=== PATIENT | female | born 2000 | race Caucasian/White ===

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

== ENCOUNTER 2022-06-01 22:45 | Emergency (ER) | payer OTHER, MEDICAID ==
[~2022-06-01] VITALS: Ht 160 cm; Wt 79.0 kg
[~2022-06-01 22:45] MED LIST changes: +AMOXICILLIN500 MG PO; +TYLENOL # 31 TA1 PO; +VOLTAREN75 MG PO
[2022-06-01 23:48] VITALS: BP 138/84
[2022-06-01] MEDS ORDERED: TRAZODONE50 MG PO (23:55)
[2022-06-01] MEDS ORDERED: ZOLOFT25 MG PO (23:56)
[2022-06-02] VITALS: BP 124/76
[2022-06-02 00:15] VITALS: BP 118/100
[2022-06-03] MEDS ORDERED: LORTAB 1010 MG PO ×2 (21:36→21:47)
== END 2022-06-02 00:31 | disposition home or self-care (01) | DRG 159 ==
LOC: ED 22:45
DX: K04.7 Periapical abscess without sinus (principal)

== ENCOUNTER 2022-06-03 20:08 | Emergency (ER) | payer OTHER, MEDICAID ==
[~2022-06-03] VITALS: Ht 162.6 cm; Wt 79.5 kg
[~2022-06-03 20:08] MED LIST changes: +TRAZODONE50 MG PO; +ZOLOFT25 MG PO
[2022-06-03 21:06] VITALS: BP 128/85
[2022-06-03 21:15] VITALS: BP 121/73
[2022-06-03 21:30] VITALS: BP 130/86
[2022-06-03] MEDS ORDERED: LORTAB 1010 MG PO ×2 (21:36→21:47)
[2022-06-03 21:45] VITALS: BP 130/75
== END 2022-06-03 21:51 | disposition home or self-care (01) | DRG 159 ==
LOC: ED 20:08
DX: K04.7 Periapical abscess without sinus (principal)

== ENCOUNTER 2022-09-11 22:24 | Emergency (ER) | payer OTHER, MEDICAID ==
[~2022-09-11] VITALS: Ht 162.6 cm; Wt 70.0 kg
[~2022-09-11 22:24] MED LIST changes: +LORTAB 1010 MG PO
[2022-09-11 22:29] VITALS: BP 125/79
[2022-09-11 22:30] VITALS: BP 114/83
[2022-09-11 22:46] VITALS: BP 115/60
[2022-09-11] MEDS ORDERED: CLARITIN10 M1 PO (23:07)
[2022-09-11] MEDS ORDERED: AMOXICILLIN500 MG PO (23:07)
[2022-09-11 23:09] VITALS: BP 108/39
[2022-09-11 23:29] VITALS: BP 108/39
== END 2022-09-11 23:34 | disposition home or self-care (01) | DRG 153 ==
LOC: ED 22:24
DX: J02.9 Acute pharyngitis, unspecified (principal); F41.9 Anxiety disorder, unspecified; Z20.822 Contact with and (suspected) exposure to COVID-19

== ENCOUNTER 2022-11-22 10:08 | Emergency (ER) | payer OTHER, MEDICAID ==
[~2022-11-22] VITALS: Ht 162.6 cm; Wt 81.0 kg
[~2022-11-22 10:08] MED LIST changes: +CLARITIN10 M1 PO
[2022-11-22] MEDS ORDERED: VISTARIL25 MG PO (10:24)
[2022-11-22] MEDS ORDERED: OFLOXACIN0.3 % OD (10:37)
[2022-11-22 10:42] VITALS: BP 113/65
== END 2022-11-22 11:00 | disposition home or self-care (01) | DRG 125 ==
LOC: ED 10:08
DX: H10.9 Unspecified conjunctivitis (principal)

== ENCOUNTER 2023-04-03 22:19 | Emergency (ER) | payer OTHER, MEDICAID ==
[~2023-04-03] VITALS: Ht 162.6 cm; Wt 86.0 kg
[~2023-04-03 22:19] MED LIST changes: +OFLOXACIN0.3 % OD; +VISTARIL25 MG PO
[2023-04-03 22:28] VITALS: BP 120/82
[2023-04-03 23:15] VITALS: BP 120/82
== END 2023-04-03 23:15 | disposition left against medical advice (07) | DRG 605 ==
LOC: ED 22:19
DX: S61.233A Puncture wound without foreign body of left middle finger without damage to nail, initial encounter (principal); W46.1XXA Contact with contaminated hypodermic needle, initial encounter; Y93.F9 Activity, other caregiving; Y92.129 Unspecified place in nursing home as the place of occurrence of the external cause; Y99.0 Civilian activity done for income or pay; Z53.29 Procedure and treatment not carried out because of patient's decision for other reasons

== ENCOUNTER 2023-09-26 22:26 | Emergency (ER) | payer OTHER, MEDICAID ==
[~2023-09-26] VITALS: Ht 162.6 cm; Wt 81.0 kg
[2023-09-26] MEDS ORDERED: SODIUM CHLORIDE 0.9% 1,000 ML IV STA (22:42)
[2023-09-26] MEDS ORDERED: TAMSULOSIN HCL 0.4 MG CAP PO STA (22:42)
[2023-09-26] MEDS ORDERED: PROMETHAZINE HCL 25 MG/ML AMP IV ONE (22:45)
[2023-09-26] MEDS ORDERED: KETOROLAC TROMETHAMINE 30 MG/ML SDV IV ONE (22:45)
[2023-09-26 23:23] LABS: BASO% 0.5 % (0-3); EOS% 1.5 % (0-8); HEMATOCRIT 38.5 % (37.0-47.0); HEMOGLOBIN 12.5 g/dl (12.0-16.0); IMMATURE GRANULOCYTES 0.2 % (0.0-5.0); LYMPH% 41.4 % (15-41); MEAN CORPUSCULAR HGB 28.8 pG CALC (26.0-32.0); MEAN CORPUSCULAR HGB CONC 32.5 g/dL CAL (32.0-36.0); MONO% 5.3 % (2-13); NEUT% 51.1 % (42-76); RED BLOOD COUNT 4.34 mill/uL (4.20-5.60); RED CELL DISTRI WIDTH 12.7 % (11.5-15.5)
[2023-09-26 23:24] LABS: MEAN CELL VOLUME 88.7 fL CALC (80.0-100.0)
[2023-09-26 23:29] LABS: ALBUMIN 4.5 g/dL (3.2-5.0); BILIRUBIN, TOTAL 0.3 mg/dL (0.02-1.3); CREATININE 0.7 mg/dL (0.5-1.0); POTASSIUM 3.8 mmol/l (3.5-5.1); TOTAL PROTEIN 7.8 g/dL (6.3-8.2)
[2023-09-26 23:55] LABS: URINE BILIRUBIN - DIPSTICK Negative (NEGATIVE); URINE BLOOD DIPSTICK Large (NEGATIVE); URINE GLUCOSE - DIPSTICK Negative (NEGATIVE); URINE KETONE Negative (NEGATIVE); URINE NITRITE - DIPSTICK Negative (Negative); URINE PROTEIN - DIPSTICK Negative (NEG-TRACE); URINE SPECIFIC GRAVITY >=1.030
[2023-09-27 00:06] LABS: URINE COLOR Yellow
[2023-09-27 00:07] LABS: URINE BACTERIA FEW hpf; URINE EPITHELIAL CELLS FEW EPI/hpf (0-FEW); URINE LEUK ESTERASE Negative (NEGATIVE); URINE MUCUS FEW hpf (NONE-FEW); URINE RBC 50-100 RBC/hpf (0-5)
[2023-09-27 01:22] VITALS: BP 134/95
== END 2023-09-27 01:22 | disposition home or self-care (01) | DRG 392 ==
LOC: ED 22:26
PROVIDERS: Family Medicine
DX: R10.11 Right upper quadrant pain (principal); R10.12 Left upper quadrant pain; R31.9 Hematuria, unspecified; F41.9 Anxiety disorder, unspecified; F32.A Depression, unspecified; Z87.442 Personal history of urinary calculi